=== PATIENT | female | born 1965 | race Caucasian/White ===

== ENCOUNTER 2019-05-04 12:01 | Inpatient (IN) ==
[2019-05-04] MEDS: D5 1/2 NS + KCL 20 MEQ 1,000 ML IV SCH (15:42)
[2019-05-04] MEDS: ZOSYN 3.375 GM in NS 50 ML IV SCH ×2 (15:43→22:25)
[2019-05-04] MEDS: NICODERM PATCH TD SCH (17:04)
[2019-05-04 17:46] LABS: BASO# 0.06 X1000 (0.0-0.2); BASO% 0.8 % (0.0-0.8); EOS# 0.05 X1000 (0.0-0.7); EOS% 0.7 % (0.0-10.0); HEMATOCRIT 48.5 % (37.0-47.0); HEMOGLOBIN 15.5 g/dL (12.0-16.0); LYMPH# 1.72 X1000 (1.2-3.4); LYMPH% 22.9 % (20.5-51.1); MCH 31.3 PG (27-31); MONO# 0.56 X1000 (0.11-0.59); MONO% 7.5 % (1.7-9.3); NEUT# 5.11 X1000 (1.4-6.5); NEUT% 68.1 % (42.2-75.2); PLT 324 X1000 (130-400); RBC 4.95 XMIL (4.2-5.4); RDW 14.1 % (11.5-14.5)
[2019-05-04 18:01] LABS: AGAP 9; BUN 5 mg/dL (8-22); CALCIUM 8.9 mg/dL (8.8-10.2); CHLORIDE 94 mmol/L (98-107); COSMO 276; CREATININE 0.5 mg/dL (0.5-0.9); ESTIMATED GFR > 60; GLUCOSE 114 mg/dL (70-104); POTASSIUM 4.5 mmol/L (3.5-5.1); SODIUM 139 mmol/L (136-145); TCO2 36 mmol/L (25-35)
--- NOTE | 2019-05-04 18:07 | Diag Imaging Result Doc PS360 ---
EXAM: FLAT/UPRIGHT ABD/1 VIEW CHEST INDICATION: sigmoid diverticulitis TECHNIQUE: 3 views COMPARISON: None. FINDINGS: There is retained contrast in a loop of small bowel from a previous study. There are gas-filled loops of small bowel throughout the abdomen but there is little distention. Consider ileus. There is nothing that is specific for obstruction. There is no evidence of large volume free abdominal gas. The lungs are hyperinflated suggesting COPD. The lungs are grossly clear. There is no discrete pleural fluid collection or pneumothorax. The cardiomediastinal silhouette and central vasculature are grossly unremarkable. IMPRESSION: 1.Nonspecific abdomen as described. 2.Suggestion of COPD. Electronically signed by Hadley Cabral 05/04/2019 6:05 PM
--- NOTE | 2019-05-04 21:54 | Diag Imaging Result Doc PS360 ---
EXAM: CT ABD/PELVIS W/PO AND IV CON INDICATION: sigmoid diverticulitis TECHNIQUE: This exam was performed using automated exposure control, adjustment of mA or kV according to patient size, and/or use of iterative reconstruction technique. COMPARISON: 04/27/2019 FINDINGS: There has been a prior cholecystectomy. The liver, spleen, pancreas, adrenal glands, kidneys, and urinary bladder are grossly unremarkable. There is no evidence of appendicitis. Sigmoid colonic diverticula with wall thickening and mucosal enhancement is again identified suggesting diverticulitis. It appears stable as compared to the previous study. The collection of fluid that appears to be extraluminal in the pelvis that is suspicious for an abscess is again identified. It measures smaller than the previous study at 2.3 x 1.8 cm axially (3.1 x 2.0 cm previously). A thin tract appears to extend from the sigmoid colon to this collection. There are fluid-filled loops of small bowel with air-fluid levels throughout the abdomen that is similar to the previous study likely representing ileus. There is no evidence of obstruction. IMPRESSION: Sigmoid colonic diverticulitis complicated by a pericolonic abscess is similar to the previous study. However, the abscess measures slightly smaller than the previous study. Electronically signed by Hadley Cabral 05/04/2019 9:52 PM
[2019-05-04] MEDS: MORPHINE IV PRN (22:35)
[2019-05-05] MEDS: ZOSYN 3.375 GM in NS 50 ML IV SCH ×4 (03:36→21:30)
[2019-05-05] MEDS: ZOFRAN IV PRN ×3 (07:10→23:48)
[2019-05-05] MEDS: MORPHINE IV PRN ×3 (07:11→23:48)
--- NOTE | 2019-05-05 08:22 | PROGRESS NOTE ---
DATE: 05/05/2019 SUBJECTIVE: This is [facility] day 2. She is a 54-year-old, small, white female, smoker, who has significant COPD. She has been treated as an outpatient for the last week for complicated sigmoid diverticulitis with a small abscess. Clinically, she has not improved. She is a patient of Dr. Walden and Dr. Victoria, and I saw her in our outpatient offices yesterday. She looked acutely ill, and she was admitted for further treatment of her complicated sigmoid diverticulitis. She has been placed on IV Zosyn and clear liquids. This morning, she continues to have lower abdominal discomfort. OBJECTIVE: Vital Signs: Her heart rate is 72, blood pressure 98/79, O2 saturation 91%. She does have mild work of breathing. She is afebrile. Abdomen: Mostly soft. It is tender in the lower abdomen. She has no peritonitis. IMAGING AND LABORATORY DATA: Her white blood cell count is normal, hematocrit 48%. BUN and creatinine are [address] scan yesterday, the day of admission, at 10 p.m., documented sigmoid colonic diverticulitis with pericolonic abscess measuring 2.3 x 1.8 cm despite a week of p.o. antibiotics. PLAN: Will continue on clear liquids. I may give her some bowel prep, and if she does not improve clinically by tomorrow, will plan a sigmoid colon resection. I have discussed this in detail with the patient. She understands that this is major abdominal surgery. She understands that her lung function could be a problem, and she may even have to be ventilated after surgery. She understands that she could have a colostomy bag. cc: Sury Velazquez MD
[2019-05-05] MEDS: D5 1/2 NS + KCL 20 MEQ 1,000 ML IV SCH (09:04)
[2019-05-05] MEDS: LASIX PO SCH (09:05)
[2019-05-05] MEDS: NICODERM PATCH TD SCH (09:06)
--- NOTE | 2019-05-05 21:33 | EKG Report ---
Test Performed on : 05/05/2019 9:23:12 PM Test Reason : for surgery in am. 05/06/19 Blood Pressure : / mmHG Vent. Rate : 080 BPM Atrial Rate : 080 BPM P-R Int : 106 ms QRS Dur : 074 ms QT Int : 364 ms P-R-T Axes : 084 100 069 degrees QTc Int : 419 ms Sinus rhythm. with short GA Biatrial enlargement Rightward axis Pulmonary disease pattern Septal infarct , age undetermined Abnormal ECG No previous ECGs available Confirmed by Khanh Dillard MD ([id number]) on 05/06/2019 9:29:14 PM
[2019-05-06] MEDS: ZOSYN 3.375 GM in NS 50 ML IV SCH ×4 (03:04→20:36)
[2019-05-06] MEDS: D5 1/2 NS + KCL 20 MEQ 1,000 ML IV SCH (03:34)
[2019-05-06] MEDS: MORPHINE IV PRN (06:40)
[2019-05-06] MEDS: NICODERM PATCH TD SCH (09:15)
[2019-05-06] MEDS: LASIX PO SCH (09:15)
[2019-05-06] MEDS ORDERED: STERILE WATER INJ. ONE (10:48)
[2019-05-06] MEDS ORDERED: NORCURON ONE ×2 (10:48→12:38)
[2019-05-06] MEDS ORDERED: XYLOCAINE-MPF 2% ONE (10:50)
[2019-05-06] MEDS ORDERED: QUELICIN (DOSE) ONE (10:50)
[2019-05-06] MEDS ORDERED: DIPRIVAN 1% ONE (10:51)
[2019-05-06] MEDS ORDERED: MARCAINE 0.25% ONE (11:32)
[2019-05-06] MEDS ORDERED: EXPAREL 1.3% ONE (11:33)
[2019-05-06] MEDS ORDERED: NEO-SYNEPHRINE ONE (11:53)
[2019-05-06] MEDS ORDERED: VENTOLIN HFA ONE (11:58)
[2019-05-06] MEDS ORDERED: ROBINUL ONE (13:35)
[2019-05-06] MEDS ORDERED: NEOSTIGMINE ONE (13:37)
[2019-05-06 14:03] LABS: URINE SOURCE CATH
[2019-05-06 14:05] LABS: BILIRUBIN URINE NEGATIVE (NEGATIVE); BLOOD URINE NEGATIVE (NEGATIVE); COLOR STRAW; GLUCOSE URINE NEGATIVE (NEGATIVE); KETONE URINE NEGATIVE (NEGATIVE); LEUKOCYTES URINE NEGATIVE (NEGATIVE); NITRITE URINE NEGATIVE (NEGATIVE); PROTEIN URINE NEGATIVE (NEGATIVE); SP GRAVITY URINE 1.006; TURBIDITY URINE CLEAR (CLEAR); UROBILINOGEN URINE NORMAL (NORMAL)
[2019-05-06 14:07] LABS: UR EPITHELIAL CELLS <10 /HPF (<10); URINE BACTERIA NEGATIVE /HPF; URINE RBC <10 /HPF (<10); URINE WBC <10 /HPF (<10)
[2019-05-06] MEDS ORDERED: DUONEB (A & A) INH ONE (14:11)
[2019-05-06] MEDS ORDERED: DUONEB (A & A) ONE (14:13)
[2019-05-06] MEDS: DILAUDID ONE ×6 (14:20→17:42)
[2019-05-06] MEDS: ZOFRAN ONE ×2 (14:23→17:42)
[2019-05-06] MEDS ORDERED: D5 1/2 NS + KCL 20 MEQ 1,000 ML ONE (14:41)
[2019-05-06] MEDS: OFIRMEV 1000 MG/ISOTONIC SOLN 1,000 MG/100 ML BOTTLE ONE ×2 (14:50→17:43)
--- NOTE | 2019-05-06 15:05 | OPERATIVE NOTE ---
PROCEDURE DATE: 05/06/2019 PREOPERATIVE DIAGNOSIS: Complicated sigmoid diverticulitis. POSTOPERATIVE DIAGNOSIS: Complicated sigmoid diverticulitis. PRINCIPAL PROCEDURE: Open low anterior colon resection. SURGEON: Sury Velazquez MD. FIRST ASSISTANTS: Dr. Lexa Madsen and Dr. Ledezma , third year [facility] general surgery resident. ANESTHESIA: General in addition to a TAP block. ESTIMATED BLOOD LOSS: 100 mL. DRAINS: None. INDICATIONS: Cheryl Sheppard is a 54-year-old, white female who is a patient of Dr. Hadley Gonsales and Dr. Victoria. She has been treated for acute sigmoid diverticulitis since 04/30/2019 with p.o. antibiotics without improvement of her symptoms. I saw her in our outpatient offices and she looked acutely ill. I admitted her to the hospital and repeated the CT scan. She had ongoing diverticulitis complicated by an abscess. She was admitted, rehydrated, was kept on clear liquids, received IV Zosyn, and on hospital day 2, it was felt she should go to the operating room to resect this area of her bowel. FINDINGS: She had ongoing inflammation and infection involving her sigmoid colon down to the proximal rectum. She had a phlegmon adhered to the underside of her uterus, into the pelvic sidewalls. We had to use cautery and finger-fracture technique to mobilize the sigmoid colon and get down to uninvolved rectum. We resected the entire sigmoid colon and part of the rectum, and performed a low anterior colon resection, end-to-end, descending colon to mid rectum. This was a 28 mm EEA stapled anastomosis. DESCRIPTION OF PROCEDURE: The patient was brought to the operating room, placed supine, received general anesthesia, and was intubated. Sue catheter tube was placed. I did a rectal exam. Her abdomen was prepped and draped within a sterile field. She was already on IV Zosyn. We made a lower midline incision beginning at the umbilicus and extending down to the pubis. The cautery was used to transect the soft tissue and the midline fascia. The abdominal cavity was carefully entered. We used a wound protector for retraction. The patient was placed in Trendelenburg. We packed the bowel up into the upper abdomen and we began mobilizing the sigmoid colon using cautery and blunt finger dissection. We had to mobilize the sigmoid colon off the underside of the uterus and pelvic sidewall. We got down to uninvolved rectum which was the mid rectum. We came across it with a 45 mm TA blue load stapler. We took the inferior mesenteric vessels close to their base between Erlinda clamps and suture ligated these vessels with a 2-0 silk stitch. We used the LigaSure and also the cautery to transect the mesentery of the sigmoid colon from distal to proximal. We came across the descending colon, which we felt was uninvolved with any diverticulitis or thickening, with a pursestring instrument and cut the colon with Pierre scissors. The specimen was removed from the abdomen. We sized the colon, chose a 28 mm EEA stapler. We placed the 28 mm anvil into the descending colon and then tied the pursestring around this anvil. We took time to clean any fatty tissue off the anvil and also clean any soft tissue off the underside of the rectum. At this point, Dr. Madsen went below, placed the EEA stapler into the rectum, and I mated the anvil to this EEA stapler. Then an end-to-end, 28 mm stapled anastomosis was performed. Using a rigid proctoscope, Dr. Madsen injected air across our anastomosis and there was no evidence of leak as warm saline was placed in the pelvis. The saline was removed. There was no evidence of ongoing bleeding. I did have to mobilize the descending colon by incising the peritoneum laterally to take some tension off our anastomosis. At the end of the case, there was no tension at the anastomosis. We felt the blood supply was adequate. I took time to place the bowel back in the anatomically correct position. The uterus was allowed to fall down. The cecum was placed there in the pelvis and we made sure that the small bowel laid correctly. The greater omentum was placed over the surface of the bowel and we closed our lower midline incision in layers. The first layer was the peritoneum with a running 0 Vicryl stitches and the fascia was closed with a running #1 Maxon stitch. The wound was irrigated and then the skin was closed with a skin clip bouffant curtain machine tender. Dressings were applied. We did not use an NG tube. We will leave the Sue catheter tube in place. She will go the recovery room and then to the floor as long as her pulmonary function is satisfactory. Dr. Madsen was present throughout the case and his presence was necessary for help with exposure and stapling of the EEA anastomosis. cc: Sury Velazquez MD MTDD
[2019-05-06] MEDS: MOTRIN PO SCH (17:44)
[2019-05-06] MEDS: DUONEB (A & A) INH SCH ×3 (18:07→23:25)
[2019-05-06] MEDS: DILAUDID IV PRN ×2 (18:12→23:49)
[2019-05-06] MEDS: ZOFRAN IV PRN (20:31)
[2019-05-06] MEDS: NORCO-10 PO PRN (20:33)
[2019-05-06] MEDS: OFIRMEV 1000 MG/ISOTONIC SOLN 1,000 MG/100 ML BOTTLE IV SCH (20:38)
[2019-05-07] MEDS: D5 1/2 NS + KCL 20 MEQ 1,000 ML IV SCH ×3 (02:45→23:40)
[2019-05-07] MEDS: NORCO-10 PO PRN ×4 (02:59→21:50)
[2019-05-07] MEDS: OFIRMEV 1000 MG/ISOTONIC SOLN 1,000 MG/100 ML BOTTLE IV SCH ×3 (03:00→14:18)
[2019-05-07] MEDS: ZOFRAN IV PRN ×2 (03:02→21:55)
[2019-05-07] MEDS: MOTRIN PO SCH ×3 (03:06→15:12)
[2019-05-07] MEDS: ZOSYN 3.375 GM in NS 50 ML IV SCH ×4 (03:07→21:52)
[2019-05-07] MEDS: LOVENOX SUBQ SCH (07:32)
[2019-05-07] MEDS: DUONEB (A & A) INH SCH ×4 (08:21→23:39)
[2019-05-07] MEDS: NICODERM PATCH TD SCH (09:23)
[2019-05-07] MEDS: LASIX PO SCH (09:23)
[2019-05-07] MEDS: DILAUDID IV PRN ×2 (13:30→20:23)
--- NOTE | 2019-05-07 16:22 | PROGRESS NOTE ---
DATE: 05/07/2019 SUBJECTIVE: Ms. Cheryl Sheppard is now postop day 1 from an open low anterior colon resection for complicated sigmoid diverticulitis. She had an end-to-end stapled anastomosis. She remains on IV antibiotics and she looks good today. She has been sitting up. She is tolerating liquids. She still has a Sue catheter tube in place. Her wound is dressed. OBJECTIVE: Her heart rate is 84 to 90, blood pressure 102/58, O2 saturation 93% on oxygen. She is afebrile. PLAN: Will try to remove her Sue catheter tube tomorrow. We will keep her on clear liquids, continue IV antibiotics, and increase her activity. Overall, I think she is doing well. Dr. Joshua Irizarry is on for our group this weekend. cc: Sury Velazquez MD
[2019-05-08] MEDS: MORPHINE IV PRN ×7 (01:12→23:00)
[2019-05-08] MEDS: MOTRIN PO SCH ×4 (01:17→23:00)
[2019-05-08] MEDS: ZOSYN 3.375 GM in NS 50 ML IV SCH ×4 (04:47→21:07)
[2019-05-08] MEDS: ZOFRAN IV PRN (07:00)
[2019-05-08] MEDS: LOVENOX SUBQ SCH (07:20)
[2019-05-08] MEDS: DUONEB (A & A) INH SCH ×4 (08:03→19:53)
[2019-05-08] MEDS: LASIX PO SCH (08:57)
[2019-05-08] MEDS: NICODERM PATCH TD SCH (08:57)
[2019-05-08] MEDS: NORCO-10 PO PRN (09:02)
--- NOTE | 2019-05-08 12:16 | GENERAL SURGERY PROGRESS NOTE ---
DATE: 05/08/2019 SUBJECTIVE: The patient is doing well. She is tolerating her liquids. She did have 1 episode of vomiting, but generally tolerating her liquids. She has had a large bowel movement. She has mild pain. She has been out of bed. OBJECTIVE: She is afebrile. Vital signs are stable.General: She is awake, alert, oriented x3, in no acute distress. GI: Soft, nondistended, appropriately tender. Incisional dressing is clean and dry. LABORATORY: None today. ASSESSMENT AND PLAN: A 54-year-old female status post low anterior resection for complicated sigmoid diverticulitis. She is now postop day 2. We will advance her to a full liquid diet. I have encouraged more ambulation. cc: MD Sury Luna MD
[2019-05-08] MEDS: D5 1/2 NS + KCL 20 MEQ 1,000 ML IV SCH (18:58)
[2019-05-09] MEDS: DUONEB (A & A) INH SCH ×5 (03:21→19:50)
[2019-05-09] MEDS: MORPHINE IV PRN ×7 (03:28→23:03)
[2019-05-09] MEDS: ZOSYN 3.375 GM in NS 50 ML IV SCH ×4 (03:28→21:17)
[2019-05-09] MEDS: LOVENOX SUBQ SCH (05:08)
[2019-05-09] MEDS: NICODERM PATCH TD SCH (08:38)
[2019-05-09] MEDS: LASIX PO SCH (08:38)
[2019-05-09] MEDS: MOTRIN PO SCH ×3 (08:38→23:03)
[2019-05-09] MEDS: NORCO-10 PO PRN (12:05)
[2019-05-09] MEDS: D5 1/2 NS + KCL 20 MEQ 1,000 ML IV SCH ×2 (12:05→21:57)
[2019-05-09] MEDS ORDERED: SALINE LOCK IV FLUID XX ONE (16:51)
[2019-05-09] MEDS: MYCOSTATIN SUSP PO SCH ×2 (16:54→21:16)
--- NOTE | 2019-05-09 18:01 | GENERAL SURGERY PROGRESS NOTE ---
DATE: 05/09/2019 SUBJECTIVE: The patient is doing okay. She has mild soreness. No nausea or vomiting. She is having bowel movements and tolerating a liquid diet. OBJECTIVE: She is afebrile. Vital signs are stable.General: She is awake, alert, oriented x3. No acute distress. GI: Soft, nondistended, appropriately tender. Her incision is clean, dry, and intact without erythema. ASSESSMENT AND PLAN: A 54-year-old female status post low anterior resection. She is postop day 3 and doing well. We will advance her to a soft diet. Her oral intake overall is still low. We will Hep-Lock her IV. She may be able to go home tomorrow. cc: MD Sury Luna MD
[2019-05-10] MEDS: DUONEB (A & A) INH SCH ×3 (00:13→11:53)
[2019-05-10] MEDS: ZOSYN 3.375 GM in NS 50 ML IV SCH ×2 (03:55→09:09)
[2019-05-10] MEDS: MORPHINE IV PRN ×2 (03:55→10:01)
[2019-05-10] MEDS: NORCO-10 PO PRN ×2 (06:56→12:47)
[2019-05-10] MEDS: MOTRIN PO SCH (09:10)
[2019-05-10] MEDS: MYCOSTATIN SUSP PO SCH (09:10)
[2019-05-10] MEDS: LASIX PO SCH (09:10)
[2019-05-10] MEDS: LOVENOX SUBQ SCH (09:10)
[2019-05-10] MEDS: NICODERM PATCH TD SCH (09:10)
[2019-05-10 12:37] VITALS: BP 123/88
--- NOTE | 2019-05-10 15:56 | DISCHARGE SUMMARY ---
ADMISSION DATE: 05/04/2019 DISCHARGE DATE: 05/10/2019 ADMITTING DIAGNOSIS: Acute complicated sigmoid diverticulitis. POSTOPERATIVE DIAGNOSIS: Acute complicated sigmoid diverticulitis. PRINCIPAL PROCEDURE: Open low anterior colon resection on 05/06/2019. DISCHARGE DISABILITY: Full. DISCHARGE DIET: Regular. DISCHARGE DISPOSITION: She will return to see me next week for recheck and skin clip removal. DISCHARGE MEDICATIONS: She is to return to her home medications. HOSPITAL COURSE: Ms. Cheryl Sheppard is a 54-year-old smoker who is slim, has COPD. She developed acute complicated sigmoid diverticulitis with a pericolonic abscess. She was initially treated as an outpatient with p.o. antibiotics but clinically she did not improve. I saw her in our outpatient offices and she was admitted on the day of me seeing her in the office. She received IV antibiotics over the next 48 hours without any improvement clinically and we felt we should proceed with surgery and resect the area of infection. On 05/06/2019 she went to the operating room and underwent an open low anterior colon resection. She had a inflammatory phlegmon deep in the pelvis and we resected all her sigmoid colon and part of her rectum. We performed a stapled 28 mm EEA anastomosis between the descending colon and the rectum. We did not leave any drains or use an NG tube. Sue catheter tube was left at the time of surgery. She went to the recovery room and then the floor. We have felt that her postoperative convalescence has been normal. She has been good about being active. We continued her IV antibiotics because of intraabdominal infection. She needed a nicotine patch because of her smoking. We slowly advanced her diet. We quickly started her on a clear liquid and she was tolerating a GI soft diet as early as 05/09/2019. On 05/10/2019 or postop day 4 it was felt safe to discharge her home under the care of her with followup in our outpatient offices the following week. She knows to contact us with any problems such as increasing abdominal pain or fever, nausea, vomiting, abdominal distention. At discharge, her heart rate was 88, blood pressure 123/88, O2 saturation 93%. She was afebrile. We will not send her home on any more antibiotics. We will give her some pain medication. cc: Hadley Gonsales MD
== END 2019-05-10 15:46 | disposition home or self-care (01) | DRG 331 ==
LOC: DIRADM 12:01 → 3N 12:42
PROVIDERS: ADMIT Surgery; ATTEND Surgery